=== PATIENT | male | born 1940 | race Caucasian/White ===

== ENCOUNTER 2020-03-12 10:25 | Observation (INO) | payer MEDICARE ==
--- NOTE | 2020-03-12 10:58 | ED ---
Weakness HPI - General Chief complaint: Weakness Stated complaint: fatigue,palpitations Time Seen by Provider: 03/12/20 10:40 Source: patient, family, RN notes reviewed Mode of arrival: ambulatory Limitations: no limitations - History of Present Illness Initial comments: This a 79-year-old male presents emergency Department from urgent care to complaint of generalized weakness. Patient's been having worsening symptoms or last few months in which she states that he gets very fatigued with minimal exertion he states he does feel short of breath at the time. Patient states he presented to urgent care today because his checked his blood pressure was noted to be mildly elevated 160/90. Patient does take blood pressure medication along with Eliquis for history A. fib. Patient had a pacemaker placed in which she has had some complications within the past. Patient has no, went to chest pain, leg pain, leg swelling denies abdominal pain no nausea vomiting diarrhea constipation. - Related Data Home Medications Medication Instructions Recorded Confirmed Apixaban [Eliquis] 5 mg PO BID 03/12/20 03/12/20 Ascorbic Acid [Vitamin C] 1,000 mg PO DAILY 03/12/20 03/12/20 Cholecalciferol [Vitamin D3 (25 1,000 unit PO DAILY 03/12/20 03/12/20 Mcg = 1000 Iu)] Diltiazem HCl [Cartia Xt] 120 mg PO DAILY 03/12/20 03/12/20 Focus Factor 1 tab PO DAILY 03/12/20 03/12/20 [place]-3 Fatty Acids/Fish Oil [Fish 1 cap PO DAILY 03/12/20 03/12/20 Oil 1,000 mg Softgel] Vit C/E/Zn/Coppr/Lutein/Zeaxan 1 cap PO BID 03/12/20 03/12/20 [Preservision Areds 2 Softgel] Allergies Allergy/AdvReac Type Severity Reaction Status Date / Time No Known Allergies Allergy Verified 03/12/20 12:01 Review of Systems ROS Statement: Those systems with pertinent positive or pertinent negative responses have been documented in the HPI. ROS Other: All systems not noted in ROS Statement are negative. Past Medical History Past Medical History: Atrial Fibrillation, Hypertension Additional Past Medical History / Comment(s): kidney stone. History of Any Multi-Drug Resistant Organisms: None Reported Past Surgical History: Pacemaker Additional Past Surgical History / Comment(s): pituitary Past Psychological History: No Psychological Hx Reported Smoking Status: Never smoker Past Alcohol Use History: None Reported Past Drug Use History: None Reported General Exam Limitations: no limitations General appearance: alert, in no apparent distress Head exam: Present: atraumatic, normocephalic, normal inspection Eye exam: Present: normal appearance, PERRL, EOMI. Absent: scleral icterus, conjunctival injection, periorbital swelling ENT exam: Present: normal exam, normal oropharynx, mucous membranes moist Neck exam: Present: normal inspection, full ROM. Absent: tenderness, meningismus, lymphadenopathy Respiratory exam: Present: normal lung sounds bilaterally. Absent: respiratory distress, wheezes, rales, rhonchi, stridor Cardiovascular Exam: Present: irregular rhythm, normal heart sounds. Absent: regular rate, normal rhythm, systolic murmur, diastolic murmur, rubs, gallop, clicks GI/Abdominal exam: Present: soft, normal bowel sounds. Absent: distended, tenderness, guarding, rebound, rigid Neurological exam: Present: alert, oriented X3 Skin exam: Present: warm, dry, intact, normal color. Absent: rash Course Vital Signs 03/12/20 03/12/20 03/12/20 10:29 10:41 11:12 Temperature 97.4 F L Pulse Rate 64 80 Pulse Rate [ 76 [employer] Entry [employer] ] Respiratory 18 18 Rate Blood Pressure 143/84 128/97 O2 Sat by Pulse 99 99 Oximetry EKG Findings - EKG Comments: EKG Findings:: EKG performed at 10:44 rate of 83 humerus 90 QT status QTC 380/446 A. fib. Noted pacer, inverted T waves V3 through V6 Medical Decision Making - Medical Decision Making 79-year-old male presented for generalized weakness. Patient had progressive worsening exertional dyspnea. Patiently admitted for cardiology evaluation, echocardiogram - Lab Data Result diagrams: 03/12/20 10:57 03/12/20 10:57 Lab Results 03/12/20 03/12/20 03/12/20 Range/Units 10:57 10:57 10:57 WBC 7.4 (3.8-10.6) k/uL RBC 4.76 (4.30-5.90) m/uL Hgb 14.8 (13.0-17.5) gm/dL Hct 45.9 (39.0-53.0) % MCV 96.3 (80.0-100.0) fL MCH 31.1 (25.0-35.0) pg MCHC 32.3 (31.0-37.0) g/dL RDW 13.5 (11.5-15.5) % Plt Count 203 (150-450) k/uL Neutrophils % 64 % Lymphocytes % 28 % Monocytes % 5 % Eosinophils % 1 % Basophils % 1 % Neutrophils # 4.7 (1.3-7.7) k/uL Lymphocytes # 2.0 (1.0-4.8) k/uL Monocytes # 0.4 (0-1.0) k/uL Eosinophils # 0.1 (0-0.7) k/uL Basophils # 0.1 (0-0.2) k/uL PT 10.9 (9.0-12.0) sec INR 1.1 (<1.2) APTT 27.8 (22.0-30.0) sec Sodium (137-145) mmol/L Potassium (3.5-5.1) mmol/L Chloride (98-107) mmol/L Carbon Dioxide (22-30) mmol/L Anion Gap mmol/L BUN (9-20) mg/dL Creatinine (0.66-1.25) mg/dL Est GFR (CKD-EPI)AfAm (>60 ml/min/1.73 sqM) Est GFR (CKD-EPI)NonAf (>60 ml/min/1.73 sqM) Glucose (74-99) mg/dL Plasma Lactic Acid Carlos (0.7-2.0) mmol/L Calcium (8.4-10.2) mg/dL Magnesium (1.6-2.3) mg/dL Total Bilirubin (0.2-1.3) mg/dL AST (17-59) U/L ALT (4-49) U/L Alkaline Phosphatase (38-126) U/L Creatine Kinase (55-170) U/L Troponin I (0.000-0.034) ng/mL NT-Pro-B Natriuret Pep pg/mL Total Protein (6.3-8.2) g/dL Albumin (3.5-5.0) g/dL Urine Color Yellow Urine Appearance Cloudy (Clear) Urine pH 6.0 (5.0-8.0) Ur Specific [place] 1.030 (1.001-1.035) Urine Protein 1+ H (Negative) Urine Glucose (UA) Negative (Negative) Urine Ketones Negative (Negative) Urine Blood Negative (Negative) Urine Nitrite Negative (Negative) Urine Bilirubin Negative (Negative) Urine Urobilinogen <2.0 (<2.0) mg/dL Ur Leukocyte Esterase Negative (Negative) Urine RBC 4 (0-5) /hpf Urine WBC 2 (0-5) /hpf Ur Squamous Epith Cells 2 (0-4) /hpf Hyaline Casts 48 H (0-2) /lpf Urine Mucus Many H (None) /hpf 03/12/20 03/12/20 03/12/20 Range/Units 10:57 10:57 10:57 WBC (3.8-10.6) k/uL RBC (4.30-5.90) m/uL Hgb (13.0-17.5) gm/dL Hct (39.0-53.0) % MCV (80.0-100.0) fL MCH (25.0-35.0) pg MCHC (31.0-37.0) g/dL RDW (11.5-15.5) % Plt Count (150-450) k/uL Neutrophils % % Lymphocytes % % Monocytes % % Eosinophils % % Basophils % % Neutrophils # (1.3-7.7) k/uL Lymphocytes # (1.0-4.8) k/uL Monocytes # (0-1.0) k/uL Eosinophils # (0-0.7) k/uL Basophils # (0-0.2) k/uL PT (9.0-12.0) sec INR (<1.2) APTT (22.0-30.0) sec Sodium 137 (137-145) mmol/L Potassium 4.4 (3.5-5.1) mmol/L Chloride 106 (98-107) mmol/L Carbon Dioxide 25 (22-30) mmol/L Anion Gap 6 mmol/L BUN 16 (9-20) mg/dL Creatinine 1.11 (0.66-1.25) mg/dL Est GFR (CKD-EPI)AfAm 73 (>60 ml/min/1.73 sqM) Est GFR (CKD-EPI)NonAf 63 (>60 ml/min/1.73 sqM) Glucose 97 (74-99) mg/dL Plasma Lactic Acid Carlos 1.7 (0.7-2.0) mmol/L Calcium 9.4 (8.4-10.2) mg/dL Magnesium 2.6 H (1.6-2.3) mg/dL Total Bilirubin 0.9 (0.2-1.3) mg/dL AST 46 (17-59) U/L ALT 40 (4-49) U/L Alkaline Phosphatase 58 (38-126) U/L Creatine Kinase 43 L (55-170) U/L Troponin I <0.012 (0.000-0.034) ng/mL NT-Pro-B Natriuret Pep pg/mL Total Protein 7.4 (6.3-8.2) g/dL Albumin 4.5 (3.5-5.0) g/dL Urine Color Urine Appearance (Clear) Urine pH (5.0-8.0) Ur Specific [place] (1.001-1.035) Urine Protein (Negative) Urine Glucose (UA) (Negative) Urine Ketones (Negative) Urine Blood (Negative) Urine Nitrite (Negative) Urine Bilirubin (Negative) Urine Urobilinogen (<2.0) mg/dL Ur Leukocyte Esterase (Negative) Urine RBC (0-5) /hpf Urine WBC (0-5) /hpf Ur Squamous Epith Cells (0-4) /hpf Hyaline Casts (0-2) /lpf Urine Mucus (None) /hpf 03/12/20 Range/Units 10:57 WBC (3.8-10.6) k/uL RBC (4.30-5.90) m/uL Hgb (13.0-17.5) gm/dL Hct (39.0-53.0) % MCV (80.0-100.0) fL MCH (25.0-35.0) pg MCHC (31.0-37.0) g/dL RDW (11.5-15.5) % Plt Count (150-450) k/uL Neutrophils % % Lymphocytes % % Monocytes % % Eosinophils % % Basophils % % Neutrophils # (1.3-7.7) k/uL Lymphocytes # (1.0-4.8) k/uL Monocytes # (0-1.0) k/uL Eosinophils # (0-0.7) k/uL Basophils # (0-0.2) k/uL PT (9.0-12.0) sec INR (<1.2) APTT (22.0-30.0) sec Sodium (137-145) mmol/L Potassium (3.5-5.1) mmol/L Chloride (98-107) mmol/L Carbon Dioxide (22-30) mmol/L Anion Gap mmol/L BUN (9-20) mg/dL Creatinine (0.66-1.25) mg/dL Est GFR (CKD-EPI)AfAm (>60 ml/min/1.73 sqM) Est GFR (CKD-EPI)NonAf (>60 ml/min/1.73 sqM) Glucose (74-99) mg/dL Plasma Lactic Acid Carlos (0.7-2.0) mmol/L Calcium (8.4-10.2) mg/dL Magnesium (1.6-2.3) mg/dL Total Bilirubin (0.2-1.3) mg/dL AST (17-59) U/L ALT (4-49) U/L Alkaline Phosphatase (38-126) U/L Creatine Kinase (55-170) U/L Troponin I (0.000-0.034) ng/mL NT-Pro-B Natriuret Pep 1510 pg/mL Total Protein (6.3-8.2) g/dL Albumin (3.5-5.0) g/dL Urine Color Urine Appearance (Clear) Urine pH (5.0-8.0) Ur Specific [place] (1.001-1.035) Urine Protein (Negative) Urine Glucose (UA) (Negative) Urine Ketones (Negative) Urine Blood (Negative) Urine Nitrite (Negative) Urine Bilirubin (Negative) Urine Urobilinogen (<2.0) mg/dL Ur Leukocyte Esterase (Negative) Urine RBC (0-5) /hpf Urine WBC (0-5) /hpf Ur Squamous Epith Cells (0-4) /hpf Hyaline Casts (0-2) /lpf Urine Mucus (None) /hpf Disposition Clinical Impression: Exertional dyspnea, A-fib, Generalized weakness Disposition: ADMITTED IP TO THIS [facility] Condition: Fair Referrals: Nonstaff,Physician [REFERRING] - 1-2 days
[2020-03-12 11:13] LABS: Basophils # (A) 0.1 k/uL (0-0.2); Basophils % (A) 1 %; Eosinophils # (A) 0.1 k/uL (0-0.7); Eosinophils % (A) 1 %; HCT 45.9 % (39.0-53.0); HGB 14.8 gm/dL (13.0-17.5); Lymphocytes % (A) 28 %; MCH 31.1 pg (25.0-35.0); MCHC 32.3 g/dL (31.0-37.0); MCV 96.3 fL (80.0-100.0); Mean Platelet Volume 8.6; Monocytes # (A) 0.4 k/uL (0-1.0); Monocytes % (A) 5 %; Neutrophils # (A) 4.7 k/uL (1.3-7.7); Neutrophils % (A) 64 %; Platelet Count 203 k/uL (150-450); RBC 4.76 m/uL (4.30-5.90); RDW 13.5 % (11.5-15.5); WBC 7.4 k/uL (3.8-10.6)
[2020-03-12 11:32] LABS: INR 1.1 (<1.2); Partial Thromboplastin Time 27.8 sec (22.0-30.0); Prothrombin Time 10.9 sec (9.0-12.0)
[2020-03-12 11:43] LABS: Albumin 4.5 g/dL (3.5-5.0); Calcium 9.4 mg/dL (8.4-10.2); Magnesium 2.6 mg/dL (1.6-2.3); Total Bilirubin 0.9 mg/dL (0.2-1.3); Total Protein 7.4 g/dL (6.3-8.2)
[2020-03-12 11:44] LABS: Appearance,Urine Cloudy (Clear); Bilirubin,Urine Negative (Negative); Blood,Urine Negative (Negative); Color,Urine Yellow; Glucose,Urine (UA) Negative (Negative); Hyaline Casts,Urine 48 /lpf (0-2); Ketones,Urine Negative (Negative); Leukocyte Esterase,Urine Negative (Negative); Mucus,Urine Many /hpf; Nitrite,Urine Negative (Negative); Protein,Urine 1+ (Negative); RBC,Urine 4 /hpf (0-5); Squamous Epithelial Cell,Urine 2 /hpf (0-4); Urobilinogen,Urine <2.0 mg/dL (<2.0); WBC,Urine 2 /hpf (0-5)
[2020-03-12 11:55] LABS: Potassium 4.4 mmol/L (3.5-5.1)
--- NOTE | 2020-03-12 12:00 | XR ---
EXAMINATION TYPE: XR chest 2V DATE OF EXAM: 03/12/2020 COMPARISON: None INDICATION: Weakness TECHNIQUE: Frontal and lateral views of the chest are obtained. FINDINGS: The heart size is normal. The pulmonary vasculature is normal. The lungs are clear. The stomach overlies left chest. IMPRESSION: 1. No acute pulmonary process.
[2020-03-12] MEDS ORDERED: NALOXONE 0.4 MG/ML 1 ML VIAL IV PRN (13:17)
[2020-03-12] MEDS ORDERED: ACETAMINOPHEN TAB 325 MG TAB PO PRN (13:17)
[2020-03-12] MEDS ORDERED: ONDANSETRON 4 MG/2 ML VIAL IVP PRN (13:17)
[2020-03-12] MEDS: APIXABAN 5 MG TAB PO SCH (19:54)
--- NOTE | 2020-03-12 21:32 | P.HPIM ---
History of Present Illness H&P Date: 03/12/20 Chief Complaint: Feeling weak History of presenting complaint: This is a 79-year-old patient of Dr. Brittni Morales. Chronic stable medical conditions include atrial fibrillation, hypertension, permanent pacemaker, pediatric growth removed. Patient presents with few weeks of feeling weak and tired. With any light work she gets easily tired. Blood pressure was noted to be on the higher side at home. No chest pain. No edema. No fever no chills. Patient has a pacemaker. 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 Does not smoke or drink alcohol Physical examination: VITAL SIGNS: 97.4, 64, 18, 143 with 84, 99% on room air GENERAL: BMI 25.8, laying in bed, comfortable. EYES: Pupils equal. Conjunctiva normal. HEENT: External appearance of nose and ears normal, oral cavity grossly normal. NECK: JVD not raised; masses not palpable. HEART: First and second heart sounds are normal; no edema. LUNGS: Respiratory rate normal; clear to auscultation. ABDOMEN: Soft, nontender, liver spleen not palpable, no masses palpable. PSYCH: Alert and oriented x3; mood and affect normal. NEUROLOGICAL: Cranial nerves grossly intact; no facial asymmetry, power and sensation grossly intact. LYMPHATICS: No lymph nodes palpable in the axilla and neck INVESTIGATIONS, reviewed in the clinical context: White count 7.4 hemoglobin 14.8 platelets 203 potassium 4.4 creatinine 1.11 Troponin I less than 0.012 proBNP 1510 EKG tracing personally reviewed by me-T wave changes Chest x-ray film personally reviewed by me-lung mohan clear Assessment: -This is a patient progressively for a few weeks had been feeling tired. Easily gets tired with minimal activity. Does not notice of CHF. . Pacemaker needs to be checked out. -Persistent atrial fibrillation rate controlled -Essential hypertension Plan: Home medications to be resumed. Including eliquis. Patient put on telemetry. Cardiology consulted. Order 2-D echocardiogram. Care was discussed with the patient. Past Medical History Past Medical History: Atrial Fibrillation, Hypertension Additional Past Medical History / Comment(s): kidney stone 1979 History of Any Multi-Drug Resistant Organisms: None Reported Past Surgical History: Pacemaker Additional Past Surgical History / Comment(s): pituitary growth removed causing vision issues 1991 Past Anesthesia/Blood Transfusion Reactions: No Reported Reaction Type of Cardiac Device: Permanent Pacemaker Device Placement Date:: 04/29/2019 Past Psychological History: No Psychological Hx Reported Smoking Status: Never smoker Past Alcohol Use History: None Reported Past Drug Use History: None Reported - Past Family History Mother Family Medical History: Cancer Additional Family Medical History / Comment(s): Breast cancer Father Family Medical History: Cancer Additional Family Medical History / Comment(s): colon cancer Medications and Allergies Home Medications Medication Instructions Recorded Confirmed Type Apixaban [Eliquis] 5 mg PO BID 03/12/20 03/12/20 History Ascorbic Acid [Vitamin C] 1,000 mg PO DAILY 03/12/20 03/12/20 History Cholecalciferol [Vitamin D3 (25 1,000 unit PO DAILY 03/12/20 03/12/20 History Mcg = 1000 Iu)] Diltiazem HCl [Cartia Xt] 120 mg PO DAILY 03/12/20 03/12/20 History Focus Factor 1 tab PO DAILY 03/12/20 03/12/20 History [place]-3 Fatty Acids/Fish Oil [Fish 1 cap PO DAILY 03/12/20 03/12/20 History Oil 1,000 mg Softgel] Vit C/E/Zn/Coppr/Lutein/Zeaxan 1 cap PO BID 03/12/20 03/12/20 History [Preservision Areds 2 Softgel] Allergies Allergy/AdvReac Type Severity Reaction Status Date / Time No Known Allergies Allergy Verified 03/12/20 12:01 Physical Exam Vitals: Vital Signs Temp Pulse Pulse Resp BP BP Pulse Ox 03/12/20 19:49 69 03/12/20 19:40 97.8 F 69 133/83 96 03/12/20 15:10 97.5 F L 74 20 155/93 97 03/12/20 11:12 80 18 128/97 99 03/12/20 10:41 76 03/12/20 10:29 97.4 F L 64 18 143/84 99 Intake and Output 03/12/20 03/12/20 03/12/20 06:59 14:59 22:59 Intake Total 350 Balance 350 Intake: Oral 350 Other: Voiding Method Toilet Weight 81.647 kg 81.647 kg Results CBC & Chem 7: 03/12/20 10:57 03/12/20 10:57 Labs: Abnormal Lab Results - Last 24 Hours (Table) 03/12/20 03/12/20 Range/Units 10:57 10:57 Magnesium 2.6 H (1.6-2.3) mg/dL Creatine Kinase 43 L (55-170) U/L Urine Protein 1+ H (Negative) Hyaline Casts 48 H (0-2) /lpf Urine Mucus Many H (None) /hpf Thrombosis Risk Factor Assmnt - Choose All That Apply Any of the Below Risk Factors Present?: Yes Each Factor Represents 1 point: Medical pt on bed rest, Obesity (BMI >25) Other Risk Factors: Yes (atrial fib) Each Risk Factor Represents 3 Points: Age 75 years or older Thrombosis Risk Factor Assessment Total Risk Factor Score: 5 Thrombosis Risk Factor Assessment Level: High Risk
[2020-03-13] MEDS ORDERED: CHOLECALCIFEROL 1,000 UNIT TAB PO SCH (09:00)
[2020-03-13] MEDS ORDERED: ASCORBIC ACID 500 MG TAB PO SCH (09:00)
[2020-03-13] MEDS ORDERED: DILTIAZEM CD 120 MG CAP.ER.24H PO SCH (09:00)
[2020-03-13 09:04] VITALS: BP 148/92; PULSE 72; RESP 16; TEMP 97.6
--- NOTE | 2020-03-13 10:32 | ECHOF ---
Referral Reason:Assess LV function MEASUREMENTS -------- HEIGHT: 177.8 cm WEIGHT: 81.6 kg BP: 137/87 RVIDd: 3.3 cm (< 3.3) IVSd: 1.5 cm (0.6 - 1.1) LVIDd: 5.1 cm (3.9 - 5.3) LVPWd: 1.5 cm (0.6 - 1.1) IVSs: 1.9 cm LVIDs: 4.5 cm LVPWs: 1.9 cm LA Diam: 4.6 cm (2.7 - 3.8) LAESV Index (A-L): 55.38 ml/m Ao Diam: 3.7 cm (2.0 - 3.7) AV Cusp: 2.2 cm (1.5 - 2.6) MV EXCURSION: 19.027 mm (> 18.000) MV EF SLOPE: 50 mm/s (70 - 150) EPSS: 0.4 cm AR PHT: 616 ms RAP: 5.00 mmHg RVSP: 28.63 mmHg FINDINGS -------- Paced rhythm. This was a technically adequate study. The left ventricular size is normal. There is moderate concentric left ventricular hypertrophy. O verall left ventricular systolic function is mildly impaired with, an EF between 45 - 50 %. Anterse ptal Hypokinesis The right ventricle is mildly enlarged. LA is severely dilated >40 ml/m2 The right atrium is normal in size. Interatrial and interventricular septum intact. Aortic valve is trileaflet and is mildly thickened. Lrey-wn-[id number] mitral regurgitation is present. Mild tricuspid regurgitation present. Right ventricular systolic pressure is normal at < 35 mmHg. Trace/mild (physiologic) pulmonic regurgitation. The aortic root size is normal. Normal inferior vena cava with normal inspiratory collapse consistent with estimated right atrial pre ssure of 5 mmHg. There is no pericardial effusion. CONCLUSIONS -------- 1. Paced rhythm. 2. The left ventricular size is normal. 3. There is moderate concentric left ventricular hypertrophy. 4. Anterseptal Hypokinesis 5. The right ventricle is mildly enlarged. 6. LA is severely dilated >40 ml/m2 7. Aortic valve is trileaflet and is mildly thickened. 8. Wmvm-lm-[id number] mitral regurgitation is present. 9. Mild tricuspid regurgitation present. 10. Trace/mild (physiologic) pulmonic regurgitation. 11. There is no pericardial effusion. [employer] UNLOADER: MARIA INES Landry
[2020-03-13] MEDS: APIXABAN 5 MG TAB PO SCH (10:38)
--- NOTE | 2020-03-13 10:47 | P.CRDCN ---
History of Present Illness History of present illness: HISTORY OF PRESENTING ILLNESS This is a pleasant 79-year-old male past medical history significant for chronic persistent atrial fibrillation, permanent pacemaker implantation and hypertension. He follows in the office with in Dr. Major Paulson. We have been asked to see in consultation for atrial fibrillation and exertional dyspnea. The patient was seen and examined sitting up in bed in no acute distress. He states for the previous few months he has noted increased fatigue with minimal activity that he previously was able to do without problems. He is also experiencing some increased shortness of breath. He denies chest pain, dizziness or palpitations. Echocardiogram obtained revealed mildly impaired LV systolic function with ejection fraction 45-50%, anteroseptal hypokinesia, mild to moderate MR, mild TR and severely dilated left atrium DIAGNOSTICS EKG reveals atrial fibrillation with frequent PVCs, mild ST abnormalities in the lateral leads and T-wave inversions precordially suggestive of LVH. There is no old EKG for comparison. Chest xray negative for an acute cardiopulmonary process. Laboratory reviewed, CBC unremarkable, sodium 137, potassium 4.4, creatinine 1.1, cardiac enzymes negative 2 and and T proBNP 1510. Current cardiac medications include Eliquis 5 mg twice a day and diltiazem 120 mg daily. REVIEW OF SYSTEMS At the time of my exam: CONSTITUTIONAL: Denies fever or chills. CARDIOVASCULAR: Denies chest pain, shortness of breath, orthopnea, PND or palpitations. RESPIRATORY: Denies cough. GASTROINTESTINAL: Denies abdominal pain, diarrhea, constipation, nausea or vomiting. MUSCULOSKELETAL: Denies myalgias. NEUROLOGIC: Denies numbness, tingling or weakness. ENDOCRINE: Denies fatigue, weight change, polydipsia or polyurina. GENITOURINARY: Denies burning, hematuria or urgency with micturation. HEMATOLOGIC: Denies history of anemia or bleeding. PHYSICAL EXAMINATION Blood pressure 148/92 heart rate 72 afebrile and maintaining oxygen saturation on room air. CONSTITUTIONAL: No apparent distress. HEENT: Head is normocephalic. Pupils are equal, round. Sclerae anicteric. Mucous membranes of the mouth are moist. No JVD. No carotid bruit. CHEST EXAMINATION: Lungs are clear to auscultation. No chest wall tenderness is noted on palpation or with deep breathing. HEART EXAMINATION: Regular rate and rhythm. S1, S2 heard. Systolic ejection murmur at the left sternal border, no gallops or rub. ABDOMEN: Soft, nontender. Positive bowel sounds. EXTREMITIES: 2+ peripheral pulses, no lower extremity edema and no calf tenderne ss. NEUROLOGIC EXAMINATION: Patient is awake, alert and oriented x3. ASSESSMENT Generalized weakness and fatigue Shortness of breath Chronic persistent atrial fibrillation Permanent pacemaker implantation Hypertension PLAN An acute coronary event has been ruled out. Continue cardizem for rate control and eliquis for thromboembolic protection. Add losartan 50 mg at bedtime. We will ask physical therapy to evaluate and treat the patient. Clinically he is euvolemic and not in acute heart failure. Thank you kindly for this consultation. Nurse Practitioner note has been reviewed, I agree with a documented findings and plan of care. Patient was seen and examined. Past Medical History Past Medical History: Atrial Fibrillation, Hypertension Additional Past Medical History / Comment(s): kidney stone 1979 History of Any Multi-Drug Resistant Organisms: None Reported Past Surgical History: Pacemaker Additional Past Surgical History / Comment(s): pituitary growth removed causing vision issues 1991 Past Anesthesia/Blood Transfusion Reactions: No Reported Reaction Type of Cardiac Device: Permanent Pacemaker Device Placement Date:: 04/29/2019 Past Psychological History: No Psychological Hx Reported Smoking Status: Never smoker Past Alcohol Use History: None Reported Past Drug Use History: None Reported - Past Family History Mother Family Medical History: Cancer Additional Family Medical History / Comment(s): Breast cancer Father Family Medical History: Cancer Additional Family Medical History / Comment(s): colon cancer Medications and Allergies Home Medications Medication Instructions Recorded Confirmed Type Apixaban [Eliquis] 5 mg PO BID 03/12/20 03/12/20 History Ascorbic Acid [Vitamin C] 1,000 mg PO DAILY 03/12/20 03/12/20 History Cholecalciferol [Vitamin D3 (25 1,000 unit PO DAILY 03/12/20 03/12/20 History Mcg = 1000 Iu)] Diltiazem HCl [Cartia Xt] 120 mg PO DAILY 03/12/20 03/12/20 History Focus Factor 1 tab PO DAILY 03/12/20 03/12/20 History [place]-3 Fatty Acids/Fish Oil [Fish 1 cap PO DAILY 03/12/20 03/12/20 History Oil 1,000 mg Softgel] Vit C/E/Zn/Coppr/Lutein/Zeaxan 1 cap PO BID 03/12/20 03/12/20 History [Preservision Areds 2 Softgel] Allergies Allergy/AdvReac Type Severity Reaction Status Date / Time No Known Allergies Allergy Verified 03/12/20 12:01 Physical Exam Vitals: Vital Signs Temp Pulse Pulse Pulse Resp BP BP 03/13/20 09:00 72 16 03/13/20 07:57 97.6 F 72 16 148/92 03/13/20 02:50 97.9 F 73 137/87 03/12/20 19:49 69 03/12/20 19:40 97.8 F 69 133/83 03/12/20 15:10 97.5 F L 74 20 155/93 03/12/20 11:12 80 18 128/97 Pulse Ox 03/13/20 09:00 03/13/20 07:57 97 03/13/20 02:50 98 03/12/20 19:49 03/12/20 19:40 96 03/12/20 15:10 97 03/12/20 11:12 99 Intake and Output 03/12/20 03/13/20 03/13/20 22:59 06:59 14:59 Intake Total 350 0 Output Total 0 Balance 350 0 Intake: Oral 350 0 Output: Urine 0 Other: Voiding Method Toilet Toilet Toilet # Voids 0 Weight 81.647 kg Results 03/12/20 10:57 03/12/20 10:57 Cardiac Enzymes 03/12/20 03/12/20 03/13/20 Range/Units 10:57 10:57 08:28 AST 46 (17-59) U/L Troponin I <0.012 <0.012 (0.000-0.034) ng/mL Coagulation 03/12/20 Range/Units 10:57 PT 10.9 (9.0-12.0) sec APTT 27.8 (22.0-30.0) sec CBC 03/12/20 Range/Units 10:57 WBC 7.4 (3.8-10.6) k/uL RBC 4.76 (4.30-5.90) m/uL Hgb 14.8 (13.0-17.5) gm/dL Hct 45.9 (39.0-53.0) % Plt Count 203 (150-450) k/uL Comprehensive Metabolic Panel 03/12/20 Range/Units 10:57 Sodium 137 (137-145) mmol/L Potassium 4.4 (3.5-5.1) mmol/L Chloride 106 (98-107) mmol/L Carbon Dioxide 25 (22-30) mmol/L BUN 16 (9-20) mg/dL Creatinine 1.11 (0.66-1.25) mg/dL Glucose 97 (74-99) mg/dL Calcium 9.4 (8.4-10.2) mg/dL AST 46 (17-59) U/L ALT 40 (4-49) U/L Alkaline Phosphatase 58 (38-126) U/L Total Protein 7.4 (6.3-8.2) g/dL Albumin 4.5 (3.5-5.0) g/dL Current Medications Generic Name Dose Route Start Last Admin Trade Name Freq PRN Reason Stop Dose Admin Acetaminophen 650 mg 03/12/20 13:17 Acetaminophen Tab 325 Mg Tab PO Q6HR PRN Mild Pain or Fever > 100.5 Apixaban 5 mg 03/12/20 21:00 03/13/20 10:38 Apixaban 5 Mg Tab PO 5 mg BID AMARILYS Administration Ascorbic Acid 1,000 mg 03/13/20 09:00 03/13/20 10:38 Ascorbic Acid 500 Mg Tab PO 1,000 mg DAILY AMARILYS Administration Cholecalciferol 1,000 unit 03/13/20 09:00 03/13/20 10:38 Cholecalciferol 1,000 Unit Tab PO 1,000 unit DAILY AMARILYS Administration Diltiazem HCl 120 mg 03/13/20 09:00 03/13/20 10:38 Diltiazem Cd 120 Mg Cap.Er.24h PO 120 mg DAILY AMARLIYS Administration Losartan Potassium 50 mg 03/13/20 21:00 Losartan 50 Mg Tab PO HS AMARILYS Naloxone HCl 0.2 mg 03/12/20 13:17 Naloxone 0.4 Mg/Ml 1 Ml Vial IV Q2M PRN Opioid Reversal Ondansetron HCl 4 mg 03/12/20 13:17 Ondansetron 4 Mg/2 Ml Vial IVP Q8HR PRN Nausea And Vomiting Intake and Output 03/12/20 03/13/20 03/13/20 22:59 06:59 14:59 Intake Total 350 0 Output Total 0 Balance 350 0 Intake: Oral 350 0 Output: Urine 0 Other: Voiding Method Toilet Toilet Toilet # Voids 0 Weight 81.647 kg 03/12/20 10:57 03/12/20 10:57
[2020-03-13] MEDS ORDERED: LOSARTAN 50 MG TAB PO SCH (21:00)
--- NOTE | 2020-03-13 23:29 | P.DS ---
Providers Date of admission: 03/12/20 13:18 Expected date of discharge: 03/13/20 Attending physician: Bhupendra Negrete Consults: 03/12/20 13:18 Consult Physician Urgent Consulting Provider: Edmundo Bowling Consult Reason/Comments: Exertional dyspnea, A. fib Do you want consulting provider notified?: Yes Primary care physician: Brittni Morales [facility] Course: Chief Complaint: Feeling weak History of presenting complaint: This is a 79-year-old patient of Dr. Brittni Morales. Chronic stable medical conditions include atrial fibrillation, hypertension, permanent pacemaker, pediatric growth removed. Patient presents with few weeks of feeling weak and tired. With any light work she gets easily tired. Blood pressure was noted to be on the higher side at home. No chest pain. No edema. No fever no chills. Patient has a pacemaker. Patient is seen by cardiology. No further intervention. Patient's tachycardia feeling better. He'll follow-up with cardiology. Consultation: Dr. Wallace Chamorro from cardiology Physical examination: VITAL SIGNS: 37.6, 72, 16, 140 but 92, 97% room air GENERAL: Sitting up in a chair, comfortable EYES: Pupils equal. Conjunctiva normal. HEENT: External appearance of nose and ears normal, oral cavity grossly normal. NECK: JVD not raised; masses not palpable. HEART: First and second heart sounds are normal; no edema. LUNGS: Respiratory rate normal; clear to auscultation. ABDOMEN: Soft, nontender, liver spleen not palpable, no masses palpable. PSYCH: Alert and oriented x3; mood and affect normal. INVESTIGATIONS, reviewed in the clinical context: White count 7.4 hemoglobin 14.8 platelets 203 potassium 4.4 creatinine 1.11 Troponin I less than 0.012 2 proBNP 1510 EKG tracing personally reviewed by me-T wave changes Chest x-ray film personally reviewed by me-lung mohan clear Assessment: -Persistent atrial fibrillation rate controlled -Essential hypertension -Asthenia. Better. Follow-up with PCP Disposition: Home Patient Condition at Discharge: Fair Plan - Discharge Summary New Discharge Prescriptions: New Losartan [Cozaar] 50 mg PO HS #30 tab Continue Focus Factor 1 tab PO DAILY Vit C/E/Zn/Coppr/Lutein/Zeaxan [Preservision Areds 2 Softgel] 1 cap PO BID [place]-3 Fatty Acids/Fish Oil [Fish Oil 1,000 mg Softgel] 1 cap PO DAILY Diltiazem HCl [Cartia Xt] 120 mg PO DAILY Cholecalciferol [Vitamin D3 (25 Mcg = 1000 Iu)] 1,000 unit PO DAILY Apixaban [Eliquis] 5 mg PO BID Ascorbic Acid [Vitamin C] 1,000 mg PO DAILY Discharge Medication List Apixaban [Eliquis] 5 mg PO BID 03/12/20 [History] Ascorbic Acid [Vitamin C] 1,000 mg PO DAILY 03/12/20 [History] Cholecalciferol [Vitamin D3 (25 Mcg = 1000 Iu)] 1,000 unit PO DAILY 03/12/20 [History] Diltiazem HCl [Cartia Xt] 120 mg PO DAILY 03/12/20 [History] Focus Factor 1 tab PO DAILY 03/12/20 [History] [place]-3 Fatty Acids/Fish Oil [Fish Oil 1,000 mg Softgel] 1 cap PO DAILY 03/12/20 [History] Vit C/E/Zn/Coppr/Lutein/Zeaxan [Preservision Areds 2 Softgel] 1 cap PO BID 03/12/20 [History] Losartan [Cozaar] 50 mg PO HS #30 tab 03/13/20 [Rx] Follow up Appointment(s)/Referral(s): 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
== END 2020-03-13 12:08 ==
LOC: EC 10:25 → SUPCPDRO 10:25 → 3NCARDOBS 13:18
PROVIDERS: ADMIT Hospitalist; ATTEND Hospitalist
DX: I48.19 Other persistent atrial fibrillation (principal); I10 Essential (primary) hypertension; I08.1 Rheumatic disorders of both mitral and tricuspid valves; I49.3 Ventricular premature depolarization; E66.9 Obesity, unspecified; Z79.899 Other long term (current) drug therapy; Z79.01 Long term (current) use of anticoagulants; Z95.0 Presence of cardiac pacemaker; Z87.442 Personal history of urinary calculi; Z98.890 Other specified postprocedural states; Z68.25 Body mass index [BMI] 25.0-25.9, adult; Z86.39 Personal history of other endocrine, nutritional and metabolic disease; Z80.3 Family history of malignant neoplasm of breast; Z80.0 Family history of malignant neoplasm of digestive organs
CPT/HCPCS: 93005 ×2; 99285; 36415; 93306; 97161; 83880; 80053; 82550; 83605; 83735; 84484 ×2; 85025; 85610; 85730; 81001; 71046; G0378 ×2

== ENCOUNTER → 2023-07-29 | Outpatient (CLI) | payer MEDICARE ==
--- NOTE | 2023-07-30 08:58 | NM ---
EXAMINATION TYPE: NM DatScan Brain SPECT DATE OF EXAM: 07/29/2023 COMPARISON: NONE HISTORY: Tremor TECHNIQUE: 10 drops of Lugol's solution was administered 1 hour prior to injection as a thyroid bloc romina agent. After the administration of 4.44 mCi I-123 Ioflupane DaTscan. Images obtained 3 hours p ost injection. SPECT images of the brain were acquired with axial and coronal reconstructions. FINDINGS: The axial SPECT images demonstrate normal background activity. Accounting for head tilt, t here appears to be slight asymmetrically blunted comma-shaped appearance of the right corpus striatum . Z score analysis performed. IMPRESSION: Slightly blunted striatal activity on the right may indicate early changes of idiopathic Parkinson's disease or Parkinsonian syndrome.
== END | disposition home or self-care (01) ==
LOC: RADNMMAIN 10:26
PROVIDERS: ATTEND Psychiatry & Neurology Neurology
DX: G25.0 Essential tremor (principal)
CPT/HCPCS: 78803; A9584